=== PATIENT | female | born 2000 | race African-American/Black ===

== ENCOUNTER 2022-03-16 11:30 | Emergency (ER) | payer MEDICAID, OTHER ==
[~2022-03-16] VITALS: Ht 160 cm; Wt 82.0 kg
[2022-03-16] MEDS ORDERED: CYCLOBENZAPRINE 10MG TABLET PO ONE (13:45)
[2022-03-16] MEDS ORDERED: CYCL10TA21 MT (14:13)
[2022-03-16] MEDS ORDERED: LIDO700A30 TP (14:13)
[2022-03-16] MEDS ORDERED: KETOROLAC 15MG/ML VIAL IM ONE (14:15)
[2022-03-16] MEDS ORDERED: LIDOCAINE 5% PATCH TOP SCH (14:15)
[2022-03-16 14:22] VITALS: BP 127/70
[2022-03-16 17:45] LABS: CLARITY URINE CLOUDY (CLEAR); COLOR URINE YELLOW (YELLOW); KETONES URINE NEGATIVE (NEGATIVE); LEUKOCYTE ESTERASE URINE NEGATIVE (NEGATIVE); NITRITE URINE NEGATIVE (NEGATIVE); OCCULT BLOOD URINE NEGATIVE (NEGATIVE); PH URINE >=9.0 (4.5-8.0); PROTEIN URINE 1+ (NEGATIVE); SPECIFIC GRAVITY URINE 1.024 (1.005-1.030)
== END 2022-03-16 14:56 | disposition home or self-care (01) ==
LOC: ER 11:30
DX: S29.012A Strain of muscle and tendon of back wall of thorax, initial encounter (principal); F17.200 Nicotine dependence, unspecified, uncomplicated; Z98.890 Other specified postprocedural states; X58.XXXA Exposure to other specified factors, initial encounter; Y93.89 Activity, other specified; Y92.89 Other specified places as the place of occurrence of the external cause; Y99.8 Other external cause status
CPT/HCPCS: 81003; 96372; 99283; J1885

== ENCOUNTER 2022-07-23 09:57 | Emergency (ER) | payer MEDICAID, OTHER ==
[~2022-07-23] VITALS: Ht 162.6 cm; Wt 81.0 kg
[~2022-07-23 09:57] MED LIST: CYCL10TA21 MT; LIDO700A30 TP
[2022-07-23 10:00] VITALS: BP 130/66
[2022-07-23] MEDS ORDERED: HYDROCODONE/ACETAMINOPHEN 5/325MG TABLET PO ONE (11:30)
[2022-07-23] MEDS ORDERED: ONDANSETRON HCL 4MG TABLET PO ONE (11:30)
[2022-07-23] MEDS ORDERED: IBUP-2029 MT (12:15)
== END 2022-07-23 12:36 | disposition home or self-care (01) ==
LOC: ER 10:07
DX: S93.401A Sprain of unspecified ligament of right ankle, initial encounter (principal); S93.601A Unspecified sprain of right foot, initial encounter; W50.2XXA Accidental twist by another person, initial encounter; Y93.89 Activity, other specified; Y92.89 Other specified places as the place of occurrence of the external cause; Y99.8 Other external cause status
CPT/HCPCS: 73610; 73630; 99284; Q0162

== ENCOUNTER 2023-01-28 19:42 | Emergency (ER) | payer MEDICAID, OTHER ==
[~2023-01-28] VITALS: Ht 162.6 cm; Wt 84.0 kg
[~2023-01-28 19:42] MED LIST changes: +IBUP-2029 MT
[2023-01-28 23:23] VITALS: BP 115/65
== END 2023-01-28 23:24 | disposition home or self-care (01) ==
LOC: ER 19:42
DX: M25.562 Pain in left knee (principal)
CPT/HCPCS: 73560; 99283